=== PATIENT | male | born 1965 | race Caucasian/White ===

== ENCOUNTER 2023-07-21 15:27 | Emergency (ER) | payer MEDICAID, SELFPAY ==
[2023-07-21 15:34] VITALS: BMI 31.9
[2023-07-21 15:37] VITALS: BP 127/72; PULSE 94; RESP 16; TEMP 36.3; O2SAT 100
--- NOTE | 2023-07-21 16:08 | XRR_ITS ---
PROCEDURE INFORMATION: Exam: XR Chest Exam date and time: 07/21/2023 4:22 PM Age: 57 years old Clinical indication: Angina pectoris; Patient HX: Chest pain; SOB TECHNIQUE: Imaging protocol: Radiologic exam of the chest. Views: 1 view. COMPARISON: CR XR chest 1V [id number] 01/16/2017 5:32 PM FINDINGS: Lungs: There are pulmonary parenchymal calcifications consistent with remote granulomatous organism exposure. No consolidation. Pleural spaces: Unremarkable. No pleural effusion. No pneumothorax. Heart/Mediastinum: There are calcified mediastinal and perihilar lymph nodes consistent with prior granulomatous exposure. Bones/joints: Unremarkable. XR/XR chest 1V portable [id number] IMPRESSION: No evidence for acute cardiopulmonary disease.
[2023-07-21 16:33] LABS: Basophils % 0.2 %; Eosinophils # 0.2 10^3/uL (0.0-0.8); Eosinophils % 2.6 %; Hematocrit 30.3 % (37-53); Lymphocytes % 10.3 %; Mean Corpuscular HGB Conc 32.3 g/dL (30-55); Mean Corpuscular Hemoglobin 29.4 pg (27-33); Mean Platelet Volume 8.3 fL (7.4-10.4); Monocytes # 0.6 10^3/uL (0.2-0.9); Monocytes % 6.4 %; Neutrophils # 7.36 10^3/uL (1.8-7.7); Neutrophils % 79.5 %; Nucleated Red Blood Cells % 0 %; Platelet Count 309 10^3/cmm (157-399); Red Blood Count 3.33 10^6/uL (3.85-5.65); Red Cell Distribution Width 13.7 % (12.1-15.1); White Blood Count 9.25 10^3/uL (3.29-11.43)
[2023-07-21] MEDS: lidocaine 2% viscous 15 ML, aluminum-mag hydrox-simethicon 30 ML, sucralfate oral liq 1 GM PO (16:40)
[2023-07-21 16:51] LABS: Troponin(5th) Baseline 14 ng/L (0-15)
--- NOTE | 2023-07-21 16:51 | ECG_ITS ---
[facility] Test Date: 2023-07-21 Pat Name: Regis Reed Department: Room: Gender: Male Clinical Interviewer: : 1965 Requested By: Mk Wills Order Number: [id number] Jordan MD: Renato Wolfe M.D. Measurements Intervals [place] Rate: 100 P: 44 ID: [id number] QRS: 2 QRSD: 86 T: 5 QT: 363 QTc: 470 Interpretive Statements SINUS TACHYCARDIA ABNORMAL RHYTHM ECG Compared to ECG 01/16/2017 16:40:15 Sinus rhythm no longer present Electronically Signed On 07-22-2023 8:21:11 SENIOR ENLISTED ADVISOR by Renato Wolfe M.D. [id number]
[2023-07-21 16:58] LABS: Alanine Aminotransferase 76 U/L (0-41); Albumin Level 3.7 g/dL (3.5-5.2); Alkaline Phosphatase 516 U/L (40-130); Anion Gap 16.6 (5-19); Aspartate Amino Transferase 252 U/L (0-40); Blood Urea Nitrogen 8 mg/dL (6-20); Calcium 9.4 mg/dL (8.5-10.5); Carbon Dioxide 27 mmol/L (22-29); Chloride 91 mmol/L (98-107); Globulin 3.1 g/dL (1.3-4.6); Glomerular Filtration Rate 137.9 mL/min (90-130); Glucose 108 mg/dL (65-115); Lipase 51 U/L (13-60); NT Pro B Type Natriuretic Pept 191 pg/mL (0-125); Osmolality Calculated 269 mOsm/kg (285-295); Potassium 4.6 mmol/L (3.5-5.1); Sodium 130 mmol/L (136-145); Total Bilirubin 1.3 mg/dL (0.15-1.2); Total Protein 6.8 g/dL (6.6-8.7)
[2023-07-21 16:59] LABS: Creatinine Clr Calc Pharmacy 148.3905
--- NOTE | 2023-07-21 17:23 | ED_ITS ---
HPI - Chest Pain 2 General: Chief Complaint: Abdominal Pain Stated Complaint: chest pains Time Seen by Provider: 07/21/23 15:40 History of Present Illness: This patient is a 57-year-old white male who presents to the emergency department complaining of lower chest pain/epigastric pain. He states this started 11 AM today. He does not have any associated shortness of breath. He has had some nausea and did vomit twice today. He currently rates the pain an 8 on a scale of 1-10. He states he did take Tums without any relief. He does have a history of hypertension, gastroesophageal reflux disease and alcoholism. Patient states he quit drinking 6 weeks ago states he was a heavy drinker. Patient denies surgical history. He does not smoke. States the only thing he takes for the acid reflux is Tums. States he cannot afford any other type of medication for this. Associated symptoms: Reports abdominal pain, nausea and vomiting Review of Systems 2 General: Reports: 10 or more systems reviewed and unremarkable except in HPI and below GI: Reports: abdominal pain, nausea and vomiting Physical Exam 2 Const: COMMON NORMALS: no acute distress, patient oriented x3 and no limitations GENERAL APPEARANCE: cooperative and comfortable HENMT: COMMON NORMALS: normocephalic, atraumatic, Normal nasal mucous membranes and turbinates present, moist oral mucous membranes and oropharynx normal HEAD & SCALP: normal to inspection, normocephalic and atraumatic F ANGELLA & SINUS: normal facial exam NOSE: Normal nasal mucous membranes and turbinates present Eye: COMMON NORMALS: Equal, round and reactive pupils present, EOMs intact bilaterally and conjunctivae normal GENERAL EYE: appearance normal, both eyes and all related structures CONJUNCTIVA: Yes conjunctivae normal PUPIL: Yes Equal, round and reactive pupils present Neck/C-Spine: COMMON NORMALS: supple and no JVD Chest: COMMONS NORMALS: normal inspection of the chest Resp: COMMON NORMALS: normal respiratory effort and clear to auscultation bilaterally AUSCULTATION: clear to auscultation bilaterally Cardio: COMMON NORMALS: no JVD, regular rate, regular rhythm, No gallops present (Cardio), No murmurs present (Cardio) and No rub (Cardio) RATE: r egular rate RHYTHM: regular rhythm GI: COMMON NORMALS: Soft to palpation AUSCULTATION: Yes normoactive bowel sounds PALPATION: Yes Soft to palpation, Yes Tenderness to palpation present (GI), No Guarding due to palpation present (GI) and No Rebound tenderness present OTHER: Mild epigastric discomfort to deep palpation. : COMMON NORMALS: Yes no CVA tenderness BLADDER/KIDNEY EXAM: Yes no CVA tenderness Back/Pelvis: COMMON NORMALS: no CVA tenderness and thoracic and lumbar spine normal to inspection Extremity: COMMON NORMALS: normal to inspection Neuro: COMMON NORMALS: patient oriented x3 and CN's II-XII intact bilaterally Psych: COMMON NORMALS: mental status grossly normal, Normal thought process present and cooperative THOUGHT PROCESS: Normal thought process present Skin: COMMON NORMALS: no rashes or lesions noted, turgor normal and no jaundice GENERAL SKIN EXAM: no rashes or lesions noted and turgor normal Course 2 Vital Signs: Vital signs: Vital Signs Temperature 97.4 F L 07/21/23 15:37 Pulse Rate 94 07/21/23 15:37 Respiratory Rate 16 07/21/23 15:37 Blood Pressure 127/72 07/21/23 15:37 Pulse Oximetry 100 07/21/23 15:37 MDM - Chest Pain Medical Decision Making EKG revealed sinus rhythm with no ST segment abnormalities. Chest x-ray was normal. CBC reveals a hemoglobin of 9.8. I do not have an old hemoglobin on this patient. CMP revealed an AST of 252, ALT 76 and alk phos 516. Lipase was normal at 51. BNP was 191 and troponin was 14. Patient was given a GI cocktail but he states the pain completely resolved prior to the GI cocktail. He states the pain went away while nursing staff were drawing blood. He is completely pain-free at this time. I did recommend an ultrasound of the liver and gallbladder but patient refused. He states he would rather follow-up with his primary care physician regarding this and have this scheduled as an outpatient. I will prescribe omeprazole for him. I recommended he follow-up with his primary care physician soon as possible for ongoing management and evaluation. Lab Data I reviewed the patient's lab results. 07/21/23 16:23 07/21/23 16:23 Radiology Impressions Chest X-Ray 07/21/23 16:08 IMPRESSION: No evidence for acute cardiopulmonary disease. Laboratory Results WBC 9.25 10^3/uL (3.29-11.43) 07/21/23 16:23 RBC 3.33 10^6/uL (3.85-5.65) L 07/21/23 16: Hgb 9.80 g/dL (11.27-16.99) L 07/21/23 16:23 Hct 30.3 % (37-53) L 07/21/23 16:23 MCV 91.0 fl (82-101) 07/21/23 16:23 MCH 29.4 pg (27-33) 07/21/23 16: MCHC 32.3 g/dL (30-55) 07/21/23 16:23 RDW 13.7 % (12.1-15.1) 07/21/23 16: Plt Count 309 10^3/cmm (157-399) 07/21/23 16: MPV 8.3 fL (7.4-10.4) 07/21/23 16: Neut % (Auto) 79.5 % 07/21/23 16:23 Lymph % (Auto) 10.3 % 07/21/23 16:23 [place] % (Auto) 6.4 % 07/21/23 16:23 Eos % (Auto) 2.6 % 07/21/23:23 Baso % (Auto) 0.2 % 07/21/23: Neut # (Auto) 7.36 10^3/uL (1.8-7.7) 07/21/23 16:23 Lymph # (Auto) 1.0 10^3/uL (0.8-4.8) 07/21/23 16:23 [place] # (Auto) 0.6 10^3/uL (0.2-0.9) 07/21/23 16:23 Eos # (Auto) 0.2 10^3/uL (0.0-0.8) 07/21/23: Baso # (Auto) 0.0 10^3/uL (0.0-0.1) 07/21/23: Nucleated RBC % (auto) 0 % 07/21/23: Nucleated RBCs # 0.0 /100WBC 07/21/23 16:23 Sodium 130 mmol/L (136-145) L 07/21/23 16:23 Potassium 4.6 mmol/L (3.5-5.1) 07/21/23 16:23 Chloride 91 mmol/L (98-107) L 07/21/23 16:23 Carbon Dioxide 27 mmol/L (22-29) 07/21/23 16:23 Anion Gap 16.6 (5-19) 07/21/23 16:23 BUN 8 mg/dL (6-20) 07/21/23 16:23 Creatinine 0.6 mg/dL (0.7-1.2) L 07/21/23 16:23 GFR Calculation 137.9 mL/min (90-130) H 07/21/23 16:23 Glucose 108 mg/dL (65-115) 07/21/23 16:23 Calculated Osmolality 269 mOsm/kg (285-295) L 07/21/23 16:23 Calcium 9.4 mg/dL (8.5-10.5) 07/21/23 16:23 Total Bilirubin 1.3 mg/dL (0.15-1.2) H 07/21/23 16:23 AST 252 U/L (0-40) H 07/21/23 16:23 ALT 76 U/L (0-41) H 07/21/23 16:23 Alkaline Phosphatase 516 U/L (40-130) H 07/21/23 16:23 Troponin T Baseline 14 ng/L (0-15) 07/21/23 16:23 NT-Pro-B Natriuret Pep 191 pg/mL (0-125) H 07/21/23 16:23 Total Protein 6.8 g/dL (6.6-8.7) 07/21/23 16:23 Albumin 3.7 g/dL (3.5-5.2) 07/21/23 16:23 Globulin 3.1 g/dL (1.3-4.6) 07/21/23 16:23 Lipase 51 U/L (13-60) 07/21/23 16:23 All radiology interpretation(s) finalized by discharge Discharge Plan Discharge Patient Disposition: Home Clinical Impression: Biliary colic Condition: Stable Prescriptions: New omeprazole 20 mg capsule,delayed release(DR/EC) 20 mg PO DAILY Qty: 30 2RF Discharge Orders: Discharge ED (Routine); Ordered 07/21/23 Ordered By: Mk Wills Discharge Diet: Low Fat Discharge Activity: Resume usual activity Patient Instructions: Abdominal Pain (ED) Activity Restrictions/Additional Instructions: Follow-up with your primary care physician soon as possible for further evaluation. I recommended ultrasound of your liver and gallbladder. Coding Level of Care Code ED Artificial Log Machine Operator for Sarika Siegel
[2023-07-21 17:46] VITALS: BP 136/76; PULSE 100; O2SAT 97
== END 2023-07-21 17:47 | disposition home or self-care (01) ==
PROVIDERS: Emergency Provider Emergency Medicine
DX: K80.50 Calculus of bile duct without cholangitis or cholecystitis without obstruction (principal)
CPT/HCPCS: 36415; 71045; 80053; 83690; 83880; 84484; 85025; 93005; 99285

== ENCOUNTER 2024-01-11 09:31 | Outpatient (CLI) | payer OTHER, SELFPAY ==
--- NOTE | 2024-01-11 09:43 | XR_ITS ---
WS: [id number] Lumbar spine, 3 views standing, 01/11/2024 Clinical Data: BACK PAIN/ROM DIFFICULTY Comparison: None. Findings: No compression fractures or subluxation is seen. There is degenerative disc narrowing at L2-L3, L3-L4 and L4-L5. There is spurring of all the lumbar vertebral bodies. The transverse processes and SI j oints are normal. There is a dextroscoliosis. There are probable vasectomy clips overlying the pubic symphysis. XR/XR lumbar spine 2-3V* [id number] Impression: 1. 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 2. Dextroscoliosis.
== END 2024-01-11 09:32 | disposition home or self-care (01) ==
LOC: RAD 09:38
PROVIDERS: PCP Family Medicine; Visit Provider Emergency Medicine
DX: Z02.71 Encounter for disability determination (principal); M51.36 Other intervertebral disc degeneration, lumbar region; M25.78 Osteophyte, vertebrae; M41.35 Thoracogenic scoliosis, thoracolumbar region
CPT/HCPCS: 72100

== ENCOUNTER 2025-02-05 06:03 | Outpatient (CLI) | payer BC, MEDICAID, SELFPAY ==
--- NOTE | 2025-02-05 06:12 | USCV_ITS ---
Regis Reed Age: 59 Gender: M : 1965 Exam Date: 02/05/2025 06:23 Ordering Phys: Fely Fisher MD Technologist: Exam Location: [facility] [place] Indication: chf sob BP: 110 / 70 HR: 72 Rhythm: Sinus Technical Quality: Adequate MEASUREMENTS (Male / Female) Normal Values 2D ECHO LV Diastolic Diameter PLAX 5.0 cm 4.2 - 5.9 / 3.9 - 5.3 cm IVS Diastolic Thickness 1.2 cm 0.6 - 1.0 / 0.6 - 0.9 cm IVS Systolic Thickness 2.0 cm LVPW Diastolic Thickness 1.7 cm 0.6 - 1.0 / 0.6 - 0.9 cm LVPW Systolic Thickness 1.8 cm LVOT Diameter 2.1 cm LV Ejection Fraction 2D Teich 68.7 % LV Ejection Fraction MOD 4C 62.9 % LV Ejection Fraction MOD 2C 47.3 % LV Ejection Fraction 2C AL 48.1 % LA Diameter 5.5 cm RA Systolic Volume 4C AL 73.9 ml RA Systolic Volume 4C MOD 67.4 ml Aorta at Sinotubular Diameter 3.3 cm IVC Diameter 0.9 cm M-MODE LA Ao Ratio MM 1.5 AV Cusp Separation MM 1.4 cm DOPPLER AV Peak Velocity 199.0 cm/s LVOT Peak Velocity 103.0 cm/s AV Area Cont Eq vti 2.1 cm squared AV Area Cont Eq pk 1.8 cm squared MV Peak Velocity 104.0 cm/s MV Area PHT 3.3 cm squared Mitral E to A Ratio 0.9 TR Peak Velocity 251.0 cm/s TR Peak Gradient 25.2 mmHg TV Peak E Velocity 95.0 cm/s PV Peak Velocity 143.0 cm/s FINDINGS Left Ventricle Normal left ventricular size and systolic function with no regional wall motion abnormalities. EF is 55-60%. Right Ventricle Normal right ventricular size and systolic function. Right Atrium Normal right atrial size. Left Atrium Normal left atrial size. Mitral Valve Structurally normal mitral valve. Mild mitral valve regurgitation. Aortic Valve Structurally normal aortic valve. No aortic valve stenosis. Tricuspid Valve Insufficient TR jet to calculate RVSP Pulmonic Valve Not well visualized Pericardium Normal Aorta Normal in size IVC Appears to be normal CONCLUSIONS LV systolic function is normal with EF of 55-60% Mild mitral regurgitation No comparison studies are available. Geronimo Boykin MD (Electronically Signed) Final Date: 06 February 2025 23:33 S
== END 2025-02-05 06:04 | disposition home or self-care (01) ==
LOC: RAD 06:05
PROVIDERS: PCP Family Medicine; Visit Provider Family Medicine
DX: I34.0 Nonrheumatic mitral (valve) insufficiency (principal); R09.89 Other specified symptoms and signs involving the circulatory and respiratory systems
CPT/HCPCS: 93306

== ENCOUNTER 2025-03-04 10:55 | Outpatient (CLI) | payer OTHER, SELFPAY ==
[2025-03-04 11:17] VITALS: PULSE 81; RESP 18; O2SAT 97
--- NOTE | 2025-03-04 12:43 | XR_ITS ---
WS: [id number] Exam: XR lumbar spine 2-3V* [id number] Date/Time of Exam: 03/04/2025 12:45 PM Reason For Exam: LUMBAR DDD/OSTEOARTHRITIS DLP: Comparison 01/11/2024. No acute fracture or malalignment. There is spondylosis. Degenerative disc change from L3-S1. Degenerative facet change at all levels. Moderate dextroscoliosis. Extensive aortoiliac atherosclerosis. XR/XR lumbar spine 2-3V* [id number] IMPRESSION: 1. Moderate degenerative changes as detailed above. Dextroscoliosis. 2. No fracture or malalignment.
== END 2025-03-04 10:56 | disposition home or self-care (01) ==
PROVIDERS: PCP Family Medicine; Visit Provider Family Medicine
DX: Z02.71 Encounter for disability determination (principal); J44.9 Chronic obstructive pulmonary disease, unspecified; M51.369 Other intervertebral disc degeneration, lumbar region without mention of lumbar back pain or lower extremity pain; M47.816 Spondylosis without myelopathy or radiculopathy, lumbar region; M51.379 Other intervertebral disc degeneration, lumbosacral region without mention of lumbar back pain or lower extremity pain; M41.86 Other forms of scoliosis, lumbar region; I70.8 Atherosclerosis of other arteries
CPT/HCPCS: 72100; 94060; 94729; J7613